=== PATIENT | female | born 1970 | race Caucasian/White ===

== ENCOUNTER → 2017-05-27 | Outpatient (CLI) | payer OTHER ==
[~2017-05-27] MED LIST: ALBUAER2 INH; ALPR1TAB2 PO; BACL10TA PO; DULO60CA44 PO; GABA600T PO; HYDR-4383 PO; KETOROLAC IM; LEVO125T4 PO; LEVO150T9 PO; LIOT1TAB10 PO; MODA200T41 PO; ONDA8TAB7 PO
--- NOTE | 2017-05-27 16:08 | MAMMOGRAPHY REPORT ---
BILATERAL DIGITAL SCREENING MAMMOGRAM TOMOSYNTHESIS WITH CAD: 05/27/2017 CLINICAL HISTORY: Routine screening. Patient has no complaints. TECHNIQUE: Breast tomosynthesis in addition to standard 2D mammography was performed. Current study was also evaluated with a Computer Aided Detection (CAD) system. COMPARISON: Comparison is made to exam dated: 04/13/2014 mammogram - [facility]. BREAST COMPOSITION: The tissue of both breasts is heterogeneously dense, which may obscure small mas ses. FINDINGS: The breast bregma pattern is similar to prior exams. No suspicious mass, architectural dis tortion or cluster of suspicious microcalcifications is seen. IMPRESSION: ACR BI-RADS CATEGORY 1: NEGATIVE There is no mammographic evidence of malignancy. A 1 year screening mammogram is recommended. The pa tient will receive written notification of the results. Approximately 10% of breast cancers are not detected with mammography. A negative mammographic report should not delay biopsy if a clinically suggestive mass is present. Leatha Damon M.D. ay/:05/27/2017 15:23:47 Adult Day Care Worker: Apryl Ram RT(Melissa)(Kyler)([place]), [facility] letter sent: Normal 1/2 BI-RADS Code: ACR BI-RADS Category 1: Negative
== END | disposition home or self-care (01) ==
LOC: C.MAMM 08:10
PROVIDERS: ATTEND Student in an Organized Health Care Education/Training Program
DX: Z12.31 Encounter for screening mammogram for malignant neoplasm of breast (principal)

== ENCOUNTER → 2017-05-27 | Outpatient (CLI) | payer OTHER ==
[2017-05-27 10:16] LABS: BLOOD UREA NITROGEN 17 mg/dl (7-18); CALCIUM 8.7 mg/dl (8.5-10.1); CARBON DIOXIDE 30 mmol/L (21-32); CHLORIDE 107 mmol/L (98-107); CHOLESTEROL 200 mg/dl (0-200); GLUCOSE 74 mg/dl (70-99); POTASSIUM 4.4 mmol/L (3.5-5.1); SODIUM 141 mmol/L (136-145); TRIGLYCERIDES 91 mg/dl (0-150); VERY LOW DENSITY LIPOPROT CALC 18 mg/dl
[2017-05-27 10:26] LABS: CHOLESTEROL/HDL RATIO 2.5; HDL CHOLESTEROL 79 mg/dl; LDL CHOLESTEROL CALCULATED 103 mg/dl; THYROID STIMULATING HORMONE 0.581 uIu/ml (0.300-4.500)
== END | disposition home or self-care (01) ==
LOC: C.LAB1850 08:29
PROVIDERS: ATTEND Student in an Organized Health Care Education/Training Program
DX: E06.3 Autoimmune thyroiditis (principal); E07.89 Other specified disorders of thyroid; R53.83 Other fatigue

== ENCOUNTER → 2017-06-17 | Outpatient (CLI) | payer OTHER ==
--- NOTE | 2017-06-17 08:19 | DIAGNOSTIC IMAGING REPORT ---
SOFT TISS HEAD/NECK-THYROID HISTORY: 46-year-old female presents with painful thyroid and fatigue. COMPARISON: Thyroid ultrasound 05/16/2015 TECHNIQUE: Multiple real time sonographic images of the thyroid were obtained accessing omrrow scale appearance and color doppler flow. FINDINGS: MEASUREMENTS: Right lobe: 6.5 x 2.4 x 2.3 cm Left lobe: 5.4 x 2.3 x 2.1 cm Isthmus: 0.6 cm PARENCHYMA: The thyroid parenchymal is again diffusely heterogeneous and echogenic throughout, similar from comparison with increased vascularity. Nodules: No discrete nodules are appreciated. IMPRESSION: 1. Enlarged and diffusely heterogeneous, hypervascular and echogenic thyroid parenchyma is compatible with thyroiditis. Correlate with thyroid function tests. 2. No discrete thyroid nodule is identified. The above report was generated using voice recognition software. It may contain grammatical, syntax or spelling errors. Electronically signed by: Jeremy Chandra M.D. 06/17/2017 8:18 AM Dictated Date/Time: 06/17/2017 7:59 AM
== END | disposition home or self-care (01) ==
LOC: C.ULTR 07:21
PROVIDERS: ATTEND Family Medicine
DX: E06.3 Autoimmune thyroiditis (principal); R53.83 Other fatigue; E07.89 Other specified disorders of thyroid

== ENCOUNTER → 2018-01-19 | Outpatient (CLI) | payer OTHER ==
[~2018-01-19] MED LIST changes: +AML/5; -LEVO125T4 PO; +LEVO175T PO
[2018-01-19 12:25] LABS: BASO % 0.4 %; BASO ABS # 0.02 K/uL (0-0.2); EOS % 3.3 %; EOS ABS # 0.18 K/uL (0-0.5); HEMATOCRIT 41.8 % (37-47); HEMOGLOBIN 13.5 g/dL (12.0-16.0); IG# 0.01 K/uL (0.00-0.02); MEAN CELL VOLUME 87.3 fL (80-100); MEAN CORPUSCULAR HEMOGLOBIN 28.2 pg (25-34); MEAN CORPUSCULAR HGB CONC 32.3 g/dl (32-36); MEAN PLATELET VOLUME 10.8 fL (7.4-10.4); MONO % 7.5 %; MONO ABS # 0.41 K/uL (0.11-0.59); NEUT % 55.6 %; NEUT ABS # 3.03 K/uL (1.4-6.5); PLATELET COUNT 274 K/uL (130-400); RED CELL DISTRIBUTION WIDTH CV 14.8 % (11.5-14.5); RED CELL DISTRIBUTION WIDTH SD 47.5 fL (36.4-46.3); WHITE BLOOD COUNT 5.45 K/uL (4.8-10.8)
[2018-01-19 12:43] LABS: ALBUMIN 3.5 gm/dl (3.4-5.0); ALT/SGPT 26 U/L (12-78); AST/SGOT 25 U/L (15-37); BLOOD UREA NITROGEN 19 mg/dl (7-18); CALCIUM 9.9 mg/dl (8.5-10.1); CARBON DIOXIDE 31 mmol/L (21-32); CREATININE 0.93 mg/dl (0.60-1.20); GLUCOSE 82 mg/dl (70-99); POTASSIUM 3.8 mmol/L (3.5-5.1); SODIUM 138 mmol/L (136-145)
[2018-01-19 12:44] LABS: ALKALINE PHOSPHATASE 64 U/L (45-117); TOTAL PROTEIN 7.2 gm/dl (6.4-8.2)
[2018-01-21 14:31] LABS: MICROSOMAL AB >900 IU/ML (<9); TSI 157 % baseline (<140)
== END | disposition home or self-care (01) ==
LOC: C.LABBFT 09:05
PROVIDERS: ATTEND Internal Medicine
DX: D72.819 Decreased white blood cell count, unspecified (principal); R03.0 Elevated blood-pressure reading, without diagnosis of hypertension; E03.9 Hypothyroidism, unspecified; E55.9 Vitamin D deficiency, unspecified; R39.9 Unspecified symptoms and signs involving the genitourinary system

== ENCOUNTER → 2018-03-09 | Outpatient (CLI) | payer OTHER ==
[~2018-03-09] MED LIST changes: -LEVO150T9 PO; -LIOT1TAB10 PO; +LIOT25TA8 PO
== END | disposition home or self-care (01) ==
LOC: C.LABBFT 12:12
PROVIDERS: ATTEND Internal Medicine
DX: E03.9 Hypothyroidism, unspecified (principal)